=== PATIENT | female | born 1945 | race Caucasian/White ===

== ENCOUNTER 2016-07-14 17:15 | Emergency (ER) | payer MEDICARE, MEDICAID ==
[~2016-07-14] VITALS: Wt 56.7 kg
[~2016-07-14 17:15] MED LIST: ASPIRIN ADULT L81 M2 PO; FEOSOL325 MG PO; FLAGYL250 MG PO; FLORASTOR250 MG PO; HYDROCODONE BIT1 T11 PO; Lovenox40 MG/0.4 SQ; METOPROLOL TART50 M1 PO; OMNICEF300 MG PO; PRAVASTATIN SOD40 MG PO; VIBRAMYCIN100 MG PO; VICO10300 PO; VITAMIN D5000 UNIT PO; Zestril,Prinivi40 MG PO
[2016-08-07] MEDS ORDERED: NUED1CAP PO (16:30)
[2016-08-07] MEDS ORDERED: COLACE100 MG PO (16:31)
[2016-08-07] MEDS ORDERED: MEGACE400 MG/10 PO (16:31)
[2016-08-07] MEDS ORDERED: SEROQUEL50 MG PO (16:32)
[2016-08-07] MEDS ORDERED: REMERON15 M2 PO (16:52)
[2016-08-12] MEDS ORDERED: AMINOPHYLLIN200 MG PO (14:23)
[2016-08-15] MEDS ORDERED: EXELON9.5 MG/24 T (10:12)
[2016-08-15] MEDS ORDERED: MIRTAZAPINE15 M2 PO (10:12)
[2016-08-15] MEDS ORDERED: DIVALPROEX SOD500 MG PO (10:12)
[2016-08-15] MEDS ORDERED: NAMENDA-5 PO (10:12)
[2016-08-15] MEDS ORDERED: HYDROCODONE BIT1 T11 PO (12:29)
== END 2016-07-14 18:49 | disposition home or self-care (01) ==
LOC: ED 17:15
DX: M25.551 Pain in right hip (principal); I10 Essential (primary) hypertension; I25.2 Old myocardial infarction; Z79.82 Long term (current) use of aspirin; W19.XXXA Unspecified fall, initial encounter; Y93.89 Activity, other specified; Y92.129 Unspecified place in nursing home as the place of occurrence of the external cause; Y99.9 Unspecified external cause status